=== PATIENT | female | born 1945 | race Caucasian/White ===

== ENCOUNTER 2016-10-07 15:30 | Emergency (ER) | payer MEDICARE ==
[~2016-10-07] VITALS: Ht 165.1 cm; Wt 70.0 kg
[~2016-10-07 15:30] MED LIST: ALPR.25 PO; ATOR20TA42 PO; BETAM.05%T TOP; CEROTAB; ERGO50000 PO; PROT40TA PO; RANI150T PO; VITA100T55 OR; ZOLO50TA PO
[2016-10-07 15:58] VITALS: BP 166/77; PULSE 74; RESP 16; TEMP 97.8; O2SAT 95
[2016-10-07] MEDS ORDERED: SODIUM CHLORIDE 0.9% FLUSH 10 ML FLUSH IV FLUSH PRN (18:00)
[2016-10-07 18:24] LABS: BASOPHIL # 0.1 TH/MM3 (0-0.2); BASOPHIL % 0.7 % (0.0-2.0); EOSINOPHIL # 0.2 TH/MM3 (0-0.4); EOSINOPHIL % 1.8 % (0.0-4.0); HEMATOCRIT 43.6 % (35.0-46.0); HEMO FLAGS DIFF FINAL; LYMPH % 36.4 % (9.0-44.0); LYMPHOCYTE # 3.9 TH/MM3 (1.0-4.8); MEAN CELL VOLUME 93.4 FL (80.0-100.0); MEAN CORPUSCULAR HEMOGLOBIN 31.3 PG (27.0-34.0); MEAN CORPUSCULAR HGB CONC 33.6 % (32.0-36.0); MONO % 5.5 % (0.0-8.0); NEUT % 55.6 % (16.0-70.0); PLATELET COUNT 307 TH/MM3 (150-450); RED BLOOD COUNT 4.67 MIL/MM3 (4.00-5.30); RED CELL DISTRIBUTION WIDTH 12.8 % (11.6-17.2); WHITE BLOOD COUNT 10.8 TH/MM3 (4.0-11.0)
--- NOTE | 2016-10-07 18:25 | PD ---
HPI Chief Complaint: Abdominal Pain Time Seen by Provider: 18:21 Travel History International Travel<30 days: No Contact w/Intl Traveler<30days: No Traveled to known affect area: No History of Present Illness HPI 70-year-old female with history of previous hysterectomy, diabetes, hypertension , presents to the ER today with 3 days history of nausea, vomiting, bloating, left upper quadrant abdominal pains which she states is waxing and waning as is currently an 8 out of 10. She has been passing a lot of gas. She states she did have a bowel movement last night. She denies any fevers, diarrhea, or any other issues. Modifying Factors: None Associated Signs & Symptoms: Nausea, vomiting, abdominal bloating, left upper quadrant abdominal pain Risk Factors: None PFSH Past Medical History Hx Anticoagulant Therapy: Yes (asa 325mg) Cancer: No Cardiovascular Problems: Yes (htn on meds, a-fib) High Cholesterol: Yes Diabetes: Yes (type 2 diet control) Endocrine: No Genitourinary: No Hepatitis: No Hiatal Hernia: No Immune Disorder: Yes (ARTHRITIS ) Musculoskeletal: Yes (LUMBAR DISC DISEASE, SCIATICA) Neurologic: No Psychiatric: Yes (ANXIETY) Reproductive: No Respiratory: Yes (copd ??) Thyroid Disease: No ?: Not Past Surgical History AICD: No Appendectomy: Yes Cholecystectomy: Yes Ear Surgery: No Eye Surgery: Yes (INJECTION IN RIGHT JETEAUVA; RIGHT CATARACT EXTRACTION WITH LENS IMPLANT) Gynecologic Surgery: Yes (HYSTERECTOMY ) Hysterectomy: Yes Joint Replacement: No Oral Surgery: Yes (2 LESIONS REMOVED FROM VOICE BOX AUGUST 12) Pacemaker: No Social History Alcohol Use: Yes (OCCASIONALLY) Tobacco Use: Yes (1/2 PPD) Substance Use: No Allergies-Medications (Allergen,Severity, Reaction): Coded Allergies: Neurontin (Verified Allergy, Intermediate, 10/07/16) LOSS OF MEMORY Reported Meds & Prescriptions Reported Meds & Active Scripts Active Reported Azelastine Nasal [place]well (Azelastine HCl) 0.1% Boswell 1 [place]well EACH NARE BID PRN Lisinopril 10 Mg Tab 10 Mg PO BID Levocetirizine 5 Mg Tab 5 Mg PO DAILY Atorvastatin (Atorvastatin Calcium) 20 Mg Tab 20 Mg PO HS Ranitidine (Ranitidine HCl) 150 Mg Tab 150 Mg PO HS Sotalol (Sotalol HCl) 80 Mg Tab 40 Mg PO BID [id number] (Multivitamin) 1 Each Tablet 1 Tab PO DAILY Vitamin D (Cholecalciferol) 2,000 Unit Tab 1 Tab PO DAILY Aspirin 325 Mg Tab 325 Mg PO DAILY Pantoprazole (Pantoprazole Sodium) 40 Mg Tab 40 Mg PO DAILY Review of Systems Except as stated in HPI: all other systems reviewed are Neg Physical Exam Narrative GENERAL: Well-developed elderly white female patient in moderate distress. Awake and oriented 3. SKIN: Focused skin assessment warm/dry. HEAD: Atraumatic. Normocephalic. EYES: Pupils equal and round. No scleral icterus. No injection or drainage. ENT: No nasal bleeding or discharge. Mucous membranes pink and moist. NECK: Trachea midline. No JVD. CARDIOVASCULAR: Regular rate and rhythm. No murmur appreciated. RESPIRATORY: No accessory muscle use. Clear to auscultation. Breath sounds equal bilaterally. GASTROINTESTINAL: Abdomen soft, epigastric and left upper quadrant tenderness without guarding or rebound, mildly distended. Hepatic and splenic margins not palpable. MUSCULOSKELETAL: No obvious deformities. No clubbing. No cyanosis. No edema. NEUROLOGICAL: Awake and alert. No obvious cranial nerve deficits. Motor grossly within normal limits. Normal speech. PSYCHIATRIC: Appropriate mood and affect; insight and judgment normal. Data Data Last Documented VS Vital Signs Date Time Temp Pulse Resp B/P Pulse Ox O2 Delivery O2 Flow Rate FiO2 10/07/16 18:39 18 94 Room Air 10/07/16 18:38 60 133/66 10/07/16 15:58 97.8 Orders Complete Blood Count With Diff (10/07/16 17:59) Comprehensive Metabolic Panel (10/07/16 17:59) Lipase (10/07/16 17:59) Urinalysis - C+S If Indicated (10/07/16 17:59) Iv Access Insert/Monitor (10/07/16 17:59) Ecg Monitoring (10/07/16 17:59) Oximetry (10/07/16 17:59) Sodium Chloride 0.9% Flush (Ns Flush) (10/07/16 18:00) Hydromorphone Pf Inj (Dilaudid Pf Inj) (10/07/16 18:30) Ondansetron Inj (Zofran Inj) (10/07/16 18:30) Sodium Chlorid 0.9% 500 Ml Inj (Ns 500 M (10/07/16 18:30) Ct Abd/Pel W Iv Contrast(Rout) (10/07/16 18:21) Labs Laboratory Tests Test 10/07/16 10/07/16 18:10 18:15 Urine pH 5.5 Urine Protein NEG mg/dL Urine Glucose (UA) NEG mg/dL Urine Ketones NEG mg/dL Urine Occult Blood NEG Urine Nitrite NEG Urine Bilirubin NEG Urine Leukocyte Esterase TRACE White Blood Count 10.8 TH/MM3 Red Blood Count 4.67 MIL/MM3 Hemoglobin 14.6 GM/DL Hematocrit 43.6 % Mean Corpuscular Volume 93.4 FL Mean Corpuscular Hemoglobin 31.3 PG Mean Corpuscular Hemoglobin 33.6 % Concent Red Cell Distribution Width 12.8 % Platelet Count 307 TH/MM3 Mean Platelet Volume 7.5 FL Neutrophils (%) (Auto) 55.6 % Lymphocytes (%) (Auto) 36.4 % Monocytes (%) (Auto) 5.5 % Eosinophils (%) (Auto) 1.8 % Basophils (%) (Auto) 0.7 % Neutrophils # (Auto) 6.0 TH/MM3 Lymphocytes # (Auto) 3.9 TH/MM3 Monocytes # (Auto) 0.6 TH/MM3 Eosinophils # (Auto) 0.2 TH/MM3 Basophils # (Auto) 0.1 TH/MM3 CBC Comment DIFF FINAL Differential Comment Sodium Level 136 MEQ/L Potassium Level 3.8 MEQ/L Chloride Level 101 MEQ/L Carbon Dioxide Level 28.1 MEQ/L Anion Gap 7 MEQ/L Blood Urea Nitrogen 9 MG/DL Creatinine 0.57 MG/DL Estimat Glomerular Filtration 105 ML/MIN Rate Random Glucose 117 MG/DL Calcium Level 10.1 MG/DL Total Bilirubin 0.4 MG/DL Aspartate Amino Transf 15 U/L (AST/SGOT) Alanine Aminotransferase 34 U/L (ALT/SGPT) Alkaline Phosphatase 80 U/L Total Protein 8.6 GM/DL Albumin 4.5 GM/DL Lipase 241 U/L [facility] Medical Decision Making Medical Screen Exam Complete: Yes Emergency Medical Condition: Yes Medical Record Reviewed: Yes Interpretation(s) Laboratory Tests Test 10/07/16 18:15 Random Glucose 117 MG/DL (74-106) Total Protein 8.6 GM/DL (6.4-8.2) Differential Diagnosis Nausea, abdominal pain, vomitingobstruction versus ileus versus gastroenteritis versus pancreatitis versus gastritis Narrative Course Lab work and CAT scan were ordered for the patient. Dilaudid, Zofran, and IV fluids ordered. Physician Communication Physician Communication Case is signed out to oncoming physician, Dr. Chavira, awaiting CAT scan. Disposition based on CAT scan. Diagnosis Primary Impression: Abdominal pain Condition: Stable Keily Crain MD Oct 07, 2016 18:25
[2016-10-07] MEDS ORDERED: ONDANSETRON HCL 4 MG/2 ML VIAL IV PUSH ONE (18:30)
[2016-10-07] MEDS ORDERED: SODIUM CHLORID 0.9% 500 ML INJ 500 ML IV ONE (18:30)
[2016-10-07] MEDS ORDERED: HYDROmorphone HCL PF 1 MG/ML VIAL IV PUSH ONE (18:30)
[2016-10-07 18:32] LABS: CHLORIDE 101 MEQ/L (98-107); POTASSIUM 3.8 MEQ/L (3.5-5.1); SODIUM (NA) 136 MEQ/L (136-145)
[2016-10-07 18:35] LABS: ANION GAP 7 MEQ/L (5-15); BICARBONATE 28.1 MEQ/L (21.0-32.0)
[2016-10-07 18:36] LABS: BLOOD UREA NITROGEN 9 MG/DL (7-18)
[2016-10-07 18:38] VITALS: BP 133/66; PULSE 60; RESP 18; O2SAT 94
[2016-10-07 18:38] LABS: ALT (GPT) 34 U/L (10-53); AST (GOT) 15 U/L (15-37); GLOMERULAR FILTRATION RATE 105 ML/MIN (>89)
[2016-10-07] MEDS ORDERED: VITA20003 PO (18:38)
[2016-10-07] MEDS ORDERED: LISI10TA3 PO (18:38)
[2016-10-07] MEDS ORDERED: ASPI325T PO (18:38)
[2016-10-07] MEDS ORDERED: ATOR20TA15 PO (18:38)
[2016-10-07] MEDS ORDERED: MULTTAB68 PO (18:38)
[2016-10-07] MEDS ORDERED: AZEL1SPR2 EACH NARE (18:38)
[2016-10-07] MEDS ORDERED: RANI150T PO (18:38)
[2016-10-07] MEDS ORDERED: SOTA80TA PO (18:38)
[2016-10-07] MEDS ORDERED: LEVOTAB PO (18:38)
[2016-10-07] MEDS ORDERED: PANT40TA3 PO (18:38)
[2016-10-07 18:39] VITALS: RESP 18; O2SAT 94
[2016-10-07 18:40] LABS: TOTAL BILIRUBIN ADULT 0.4 MG/DL (0.2-1.0)
[2016-10-07 18:41] LABS: ALKALINE PHOSPHATASE 80 U/L (45-117)
[2016-10-07 18:44] LABS: BLOOD, URINE NEG (NEG); GLUCOSE,URINE NEG (NEG); KETONE, URINE NEG (NEG); NITRITE,URINE NEG (NEG); PH, URINE 5.5 (5.0-8.5)
[2016-10-07 19:11] LABS: URINE COLOR YELLOW (YELLW/STRAW)
[2016-10-07 19:12] LABS: COMMENT (UR) CULT NOT INDICATED; CULTURE IF INDICATED CULT NOT INDICATED; RBC, URINE 0-3 /hpf (0-3); SQUAMOUS EPITHELIAL CELL URINE 0-5 /hpf (0-5)
[2016-10-07 19:15] VITALS: BP 144/68; PULSE 63; RESP 18; TEMP 98.3; O2SAT 95
[2016-10-07] MEDS ORDERED: IOHEXOL 350 MG/ML 10 ML VIAL (for RAD DIAG) IV ONE (20:07)
[2016-10-07 20:30] VITALS: BP 136/72; PULSE 70; RESP 18; O2SAT 95
--- NOTE | 2016-10-07 20:49 | RADRPT ---
EXAM DATE/TIME: 10/07/2016 19:48 [place] COMPARISON: No previous studies available for comparison. INDICATIONS : Left abdominal pain. IV CONTRAST: 100 cc Omnipaque 350 (iohexol) IV ORAL CONTRAST: No oral contrast ingested. RADIATION DOSE: 15.49 CTDIvol (mGy) MEDICAL HISTORY : Hypertension. Diabetes mellitus type 2. SURGICAL HISTORY : Appendectomy. Cholecystectomy.Hysterectomy. ENCOUNTER: Initial ACUITY: 2 days PAIN SCALE: 7/10 LOCATION: Left abdomen TECHNIQUE: Volumetric scanning of the abdomen and pelvis was performed. Using automated exposure control and ad justment of the mA and/or kV according to patient size, radiation dose was kept as low as reasonably achievable to obtain optimal diagnostic quality images. DICOM format image data is available electro nically for review and comparison. FINDINGS: Lung bases are clear. Mild fatty liver. No acute findings in the spleen, kidneys or pancreas. Gallsto ne in gallbladder. Mild adrenal hyperplasia. No free fluid. No bowel obstruction. No adenopathy. CONCLUSION: 1. No acute findings within the abdomen or pelvis. Mild fatty liver. 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 Gallstone in gallbladder. Nasir Jarvis MD on October 07, 2016 at 20:45 Board Certified Radiologist. This report was verified electronically.
[2016-10-07] MEDS ORDERED: ZOFR4TAB PO (21:09)
[2016-10-07] MEDS ORDERED: TRAM50TA PO (21:09)
--- NOTE | 2016-10-07 21:10 | PD ---
Physical Exam Time Seen by Provider: 21:[address] Medina left this patient with me to check the CT scan and, if normal, discharge. Data Data Last Documented VS Vital Signs Date Time Temp Pulse Resp B/P Pulse Ox O2 Delivery O2 Flow Rate FiO2 10/07/16 20:30 70 18 136/72 95 Room Air 10/07/16 19:15 98.3 Orders Complete Blood Count With Diff (10/07/16 17:59) Comprehensive Metabolic Panel (10/07/16 17:59) Lipase (10/07/16 17:59) Urinalysis - C+S If Indicated (10/07/16 17:59) Iv Access Insert/Monitor (10/07/16 17:59) Ecg Monitoring (10/07/16 17:59) Oximetry (10/07/16 17:59) Sodium Chloride 0.9% Flush (Ns Flush) (10/07/16 18:00) Hydromorphone Pf Inj (Dilaudid Pf Inj) (10/07/16 18:30) Ondansetron Inj (Zofran Inj) (10/07/16 18:30) Sodium Chlorid 0.9% 500 Ml Inj (Ns 500 M (10/07/16 18:30) Ct Abd/Pel W Iv Contrast(Rout) (10/07/16 18:21) Iohexol 350 Inj (Omnipaque 350 Inj) (10/07/16 20:07) Labs Laboratory Tests Test 10/07/16 10/07/16 18:10 18:15 Urine Color YELLOW Urine Turbidity CLEAR Urine pH 5.5 Urine Specific [place] 1.014 Urine Protein NEG mg/dL Urine Glucose (UA) NEG mg/dL Urine Ketones NEG mg/dL Urine Occult Blood NEG Urine Nitrite NEG Urine Bilirubin NEG Urine Leukocyte Esterase TRACE Urine RBC 0-3 /hpf Urine WBC 3-5 /hpf Urine Squamous Epithelial 0-5 /hpf Cells Microscopic Urinalysis Comment CULT NOT INDICATED White Blood Count 10.8 TH/MM3 Red Blood Count 4.67 MIL/MM3 Hemoglobin 14.6 GM/DL Hematocrit 43.6 % Mean Corpuscular Volume 93.4 FL Mean Corpuscular Hemoglobin 31.3 PG Mean Corpuscular Hemoglobin 33.6 % Concent Red Cell Distribution Width 12.8 % Platelet Count 307 TH/MM3 Mean Platelet Volume 7.5 FL Neutrophils (%) (Auto) 55.6 % Lymphocytes (%) (Auto) 36.4 % Monocytes (%) (Auto) 5.5 % Eosinophils (%) (Auto) 1.8 % Basophils (%) (Auto) 0.7 % Neutrophils # (Auto) 6.0 TH/MM3 Lymphocytes # (Auto) 3.9 TH/MM3 Monocytes # (Auto) 0.6 TH/MM3 Eosinophils # (Auto) 0.2 TH/MM3 Basophils # (Auto) 0.1 TH/MM3 CBC Comment DIFF FINAL Differential Comment Sodium Level 136 MEQ/L Potassium Level 3.8 MEQ/L Chloride Level 101 MEQ/L Carbon Dioxide Level 28.1 MEQ/L Anion Gap 7 MEQ/L Blood Urea Nitrogen 9 MG/DL Creatinine 0.57 MG/DL Estimat Glomerular Filtration 105 ML/MIN Rate Random Glucose 117 MG/DL Calcium Level 10.1 MG/DL Total Bilirubin 0.4 MG/DL Aspartate Amino Transf 15 U/L (AST/SGOT) Alanine Aminotransferase 34 U/L (ALT/SGPT) Alkaline Phosphatase 80 U/L Total Protein 8.6 GM/DL Albumin 4.5 GM/DL Lipase 241 U/L [facility] Medical Record Reviewed: Yes Supervised Visit with MISSAEL: No Interpretation(s) The CT scan shows no acute findings within the abdomen or pelvis. There is a mild fatty liver, advanced degenerative disc disease in the spine and single gallstone in the gallbladder. Differential Diagnosis Acute cholecystitis, pancreatitis, ulcer pain, colitis, gastroenteritis Narrative Course The patient has abdominal pain of unknown etiology. The gallstone in the gallbladder is unlikely to be causing the patient's symptoms, the patient has pain in the left upper quadrant. She initially did not want anything for pain and nausea and felt that her symptoms were from gas. She is encouraged to take simethiconeMaalox 2 would be a good [id number] drug. Nevertheless, I will write her tramadol and Zofran prescriptions. Diagnosis Primary Impression: Abdominal pain Additional Instruction: Try Maalox 2, this contains simethicone. Also, follow up with Dr. Laron Hernandez either this week or next week. Med/Other Pt SpecificInfo: Prescription(s) given Scripts Ondansetron (Zofran)4 Mg Tab4 Mg PO Q6HR PRN (NAUSEA OR VOMITING) #15 TAB Ref 0 Prov:Shane Chavira MD 10/07/16 Tramadol 50 Mg Tab50 Mg PO Q8H PRN (PAIN) #15 TAB Ref 0 Prov:Shane Chavira MD 10/07/16 Disposition: 01 DISCHARGE HOME Condition: Stable Shane Chavira MD Oct 07, 2016 21:10
== END 2016-10-07 21:45 | disposition home or self-care (01) ==
LOC: PHED 15:30
DX: R10.12 Left upper quadrant pain (principal); R11.2 Nausea with vomiting, unspecified; I48.91 Unspecified atrial fibrillation; I10 Essential (primary) hypertension; E78.00 Pure hypercholesterolemia, unspecified; E11.9 Type 2 diabetes mellitus without complications; F17.210 Nicotine dependence, cigarettes, uncomplicated
CPT/HCPCS: 74177; 80053; 81001; 83690; 85025; 96361; 96374; 99285; J2405; J7040; Q9967